=== PATIENT | male | born 1970 | race Caucasian/White ===

== ENCOUNTER 2017-03-16 13:15 | Emergency (ER) | payer OTHER ==
[~2017-03-16] VITALS: Wt 101.0 kg
[2017-03-16 15:42] LABS: ABNORMAL IP MESSAGE 1; BASOPHILS % 0.4 % (0.0-2.0); EOSINOPHILS # 0.3 10^3/ul (0.0-0.5); EOSINOPHILS % 5.6 % (0.0-7.0); HEMATOCRIT 28.2 % (42.0-52.0); HEMOGLOBIN 8.6 g/dl (14.0-18.0); LYMPHOCYTES # 0.6 10^3/ul (0.8-2.9); MEAN CORPUSCULAR HEMOGLOBIN 26.1 pg (29.0-33.0); MEAN CORPUSCULAR HGB CONC 30.5 g/dl (32.0-37.0); MEAN CORPUSCULAR VOLUME 85.7 fl (82.0-101.0); MONOCYTE # 0.5 10^3/ul (0.3-0.9); MONOCYTES % 10.8 % (0.0-11.0); NEUTROPHILS % 70.8 % (39.0-77.0); POSITIVE DIFF @See below; RED BLOOD COUNT 3.29 10^6/ul (4.70-6.10); RED CELL DISTRIBUTION WIDTH 26.5 % (11.5-14.5); WHITE BLOOD COUNT 4.8 10^3/ul (4.8-10.8)
[2017-03-16 15:59] LABS: INR 1.64; PROTIME 19.5 Sec (12.2-14.2); PT RATIO 1.5
[2017-03-16 16:00] LABS: PARTIAL THROMBOPLASTIN TIME 34.6 Sec (25.0-35.0)
[2017-03-16 16:04] LABS: ALBUMIN 2.9 g/dl (3.3-4.9); ALBUMIN/GLOBULIN RATIO 0.69; BILIRUBIN,INDIRECT 0.9 mg/dl (0-1.1); BILIRUBIN,TOTAL 0.9 mg/dl (0.2-1.3); CALCIUM 8.6 mg/dl (8.4-10.2); POTASSIUM 3.7 mmol/L (3.5-5.1); TOTAL PROTEIN 7.1 g/dl (6.1-8.1)
[2017-03-16 16:15] LABS: PLATELET COUNT 65 10^3/UL (140-415)
--- NOTE | 2017-03-16 17:43 | ERD ---
ER Documentation Chief Complaint Date/Time DATE: 03/16/17 TIME: 17:40 Chief Complaint HERE FOR PARACENTHESIS, HAS AP,SOB HPI This is a 47-year-old male who presents with abdominal distention asking for paracentesis. The patient has alcohol-related cirrhosis. His last pair was approximately 8-9 days ago. He describes abdominal fullness that is causing him to be mildly short of breath. He states this is similar to episodes in the past where he has required large-volume paracentesis. No fevers or chills no chest pain. ROS All systems reviewed and are negative except as per history of present illness. Medications Home Meds Active Scripts Cyclobenzaprine Hcl* (Cyclobenzaprine Hcl*) 10 Mg Tablet, 10 MG PO TID Y for cramping, #10 TAB Prov:ILENE WIN MD 03/16/17 Reported Medications [None] No Conflict Check 06/19/09 Allergies Allergies: Coded Allergies: acetaminophen (Verified Allergy, Unknown, itching, 03/16/17) hydrocodone (Verified Allergy, Unknown, Itching, 03/16/17) PMhx/Soc History of Surgery: Yes (GALBLADDER, LAPBAND) Anesthesia Reaction: No Hx Neurological Disorder: No Hx Respiratory Disorders: No Hx Cardiac Disorders: No Hx Psychiatric Problems: No Hx Miscellaneous Medical Probl: Yes (FATTY LIVER) Hx Alcohol Use: No Hx Substance Use: No Hx Tobacco Use: No Smoking Status: Never smoker FmHx Family History: No diabetes Physical Exam Vitals Vital Signs Date Time Temp Pulse Resp B/P Pulse Ox O2 Delivery O2 Flow Rate FiO2 03/16/17 18:24 100 18 120/75 100 03/16/17 13:16 98.1 129 20 136/76 99 Physical Exam General: Well developed, well nourished, no acute distress Head: Normocephalic, atraumatic Eyes: Pupils equally reactive, EOM intact ENT: Moist mucous membranes Neck: Supple, no lymphadenopathy Respiratory: Lungs clear bilaterally, no distress Cardiovascular: RRR, no murmurs, rubs, or gallops Abdominal: Soft, protuberant with fluid wave, no peritonitis : Deferred MSK: No edema, no unilateral swelling, 5/5 strength Neurologic: Alert and oriented, moving all extremities, normal speech, no focal weakness, no cerebellar signs Skin: No rash Psych: Normal mood Result Diagram: 03/16/17 1523 03/16/17 1523 Results 24 hrs Laboratory Tests Test 03/16/17 15:23 White Blood Count 4.810^3/ul Red Blood Count 3.2910^6/ul Hemoglobin 8.6g/dl Hematocrit 28.2% Mean Corpuscular Volume 85.7fl Mean Corpuscular Hemoglobin 26.1pg Mean Corpuscular Hemoglobin Concent 30.5g/dl Red Cell Distribution Width 26.5% Platelet Count 6510^3/UL Mean Platelet Volume fl Neutrophils % 70.8% Lymphocytes % 12.0% Monocytes % 10.8% Eosinophils % 5.6% Basophils % 0.4% Nucleated Red Blood Cells % 0.0/100WBC Neutrophils # (Manual) 3.410^3/ul Lymphocytes # 0.610^3/ul Monocytes # 0.510^3/ul Eosinophils # 0.310^3/ul Basophils # 0.010^3/ul Nucleated Red Blood Cells # 0.010^3/ul Prothrombin Time 19.5Sec Prothrombin Time Ratio 1.5 INR International Normalized Ratio 1.64 Activated Partial Thromboplast Time 34.6Sec Sodium Level 132mmol/L Potassium Level 3.7mmol/L Chloride Level 98mmol/L Carbon Dioxide Level 27mmol/L Anion Gap 11 Blood Urea Nitrogen 26mg/dl Creatinine 2.00mg/dl Glucose Level 78mg/dl Calcium Level 8.6mg/dl Total Bilirubin 0.9mg/dl Direct Bilirubin 0.00mg/dl Indirect Bilirubin 0.9mg/dl Aspartate Amino Transf (AST/SGOT) 62IU/L Alanine Aminotransferase (ALT/SGPT) 38IU/L Alkaline Phosphatase 131IU/L Total Protein 7.1g/dl Albumin 2.9g/dl Globulin 4.20g/dl Albumin/Globulin Ratio 0.69 Current Medications Medications (Trade) Dose Ordered Sig/Kenneth Route PRN Reason Start Time Stop Time Status Last Admin Dose Admin Lidocaine (Xylocaine 1% (Mpf)) 5 ml STK-MED ONCE .ROUTE 03/16/17 18:25 03/16/17 18:26 DC Cyclobenzaprine HCl (Flexeril) 10 mg ONCE ONCE PO 03/16/17 19:00 03/16/17 19:01 Procedures/MDM EKG, MONITORS, & DIAGNOSTIC IMAGING: Large volume therapeutic paracentesis performed by interventional radiology. LAB INTERPRETATION: No significant coagulopathy noted. MEDICAL DECISION MAKING: The patient presents with abdominal ascites likely secondary to cirrhosis. Patient does not exhibit any signs or symptoms concerning for complications of cirrhosis such as GI bleed, hepatic encephalopathy or spontaneous bacterial peritonitis. There is no indication currently for diagnostic paracentesis. The patient will benefit from large volume therapeutic paracentesis by interventional radiology. If the patient remains stable without evidence of hemodynamic compromise secondary to fluid shifts the patient can be safely discharged home with close primary care and hepatology follow-up. ER COURSE: The patient had successful large volume therapeutic paracentesis. The patient remained hemodynamically stable and otherwise well-appearing. The patient is safe for discharge home. I kept the patient and/or family informed of laboratory and diagnostic imaging results throughout the emergency room course. DISPOSITION PLAN: We discussed follow up with the patient's primary care doctor within 24 to 48 hours as needed. We also discussed return to the emergency room for worsening symptoms or worsening condition. Discharge Medications: None Departure Diagnosis: Primary Impression: Ascites Ascites type: due to alcoholic cirrhosis Qualified Code: K70.31 - Ascites due to alcoholic cirrhosis Additional Impressions: Anemia Anemia type: unspecified type Qualified Code: D64.9 - Anemia, unspecified type Thrombocytopenia History of cirrhosis Condition: Stable ILENE WIN MD Mar 16, 2017 17:43
[2017-03-16 18:24] VITALS: BP 120/75; PULSE 100; RESP 18
[2017-03-16] MEDS ORDERED: LIDOCAINE 1% (MPF) 5 ML VIAL ONE (18:25)
[2017-03-16] MEDS ORDERED: CYCL-319 PO (18:52)
--- NOTE | 2017-03-16 18:58 | RADRPT ---
PROCEDURE: Ultrasound guided paracentesis CLINICAL INDICATION: Ascites TECHNIQUE: The risks benefits and alternatives of the procedure were explained to the patient. In formed written consent was obtained. The patient understood the risks benefits and alternatives and wished to proceed with the procedure. A time out was performed. The overlying skin of the right lower quadrant of the abdomen was prepped and draped in the usual sterile fashion. Approximately 10 cc of lidocaine was injected locally for pain control. Utilizing ultrasound guidance, an 6-Maldivian p aracentesis catheter was placed into the peritoneal cavity without difficulty. Fluid was drained i nto vacuum bottles. After completion of draining fluid, the catheter was removed and direct pressur e was applied to the puncture site. A compression bandage was then placed at the puncture site. e patient tolerated the procedure well without complication. The fluid was not sent to the lab fo r further analysis. COMPARISON: None available FINDINGS: Surgeon: Gabriela TAYLOR. Preprocedural diagnosis: Ascites. Postprocedural diagnosis: Ascites. Samples removed: 8000 cc of clear yellow fluid was obtained. Complications: None. Estimated blood loss: 0 cc. Condition: Stable and unchanged. IMPRESSION: 1. Successful ultrasound-guided paracentesis. RPTAT: QQ .Sorin Ochoa MD, MD Date Time Electronically viewed and signed by .Sorin Ochoa MD, on 03/16/2017 18:57 .M/
[2017-03-16] MEDS ORDERED: CYCLOBENZAPRINE 10 MG TAB PO ONE (19:00)
== END 2017-03-16 19:34 | disposition home or self-care (01) ==
LOC: E/R 13:15
DX: K70.31 Alcoholic cirrhosis of liver with ascites (principal); D64.9 Anemia, unspecified; D69.6 Thrombocytopenia, unspecified
CPT/HCPCS: 36415; 80053; 85025; 85610; 85730; Z7502; Z7610

== ENCOUNTER 2017-03-20 10:53 | Emergency (ER) | payer OTHER ==
[~2017-03-20] VITALS: Ht 175.3 cm; Wt 90.9 kg
[~2017-03-20 10:53] MED LIST: CYCL-319 PO
[2017-03-20 10:55] VITALS: Ht 175.3 cm; Wt 90.9 kg
--- NOTE | 2017-03-20 16:49 | ERD ---
ER Documentation Chief Complaint Date/Time DATE: 03/20/17 TIME: 16:49 Chief Complaint ABDOMINAL DISTENTION - FOR PARACENTESIS HPI 47y/o male with recurrent ascites secondary to alcoholic liver cirrhosis presents to the ED c/o ongoing, clear, yellow drainage for paracentesis puncture wound performed 03/16/2017 and increasing distention needing paracentesis. No abdominal pain, N/V/D, shortness of breath, fevers bennett chills. ROS All systems reviewed and are negative except as per history of present illness. Medications Home Meds Active Scripts Cyclobenzaprine Hcl* (Cyclobenzaprine Hcl*) 10 Mg Tablet, 10 MG PO TID Y for cramping, #10 TAB Prov:ILENE WIN MD 03/16/17 Reported Medications [None] No Conflict Check 06/19/09 Allergies Allergies: Coded Allergies: acetaminophen (Verified Allergy, Unknown, itching, 03/16/17) hydrocodone (Verified Allergy, Unknown, Itching, 03/16/17) PMhx/Soc Reviewed in chart. As per HPI. History of Surgery: Yes (GALBLADDER, LAPBAND) Anesthesia Reaction: No Hx Neurological Disorder: No Hx Respiratory Disorders: No Hx Cardiac Disorders: No Hx Psychiatric Problems: No Hx Miscellaneous Medical Probl: Yes (FATTY LIVER, liver cirrhosis) Hx Alcohol Use: No Hx Substance Use: No Hx Tobacco Use: No Smoking Status: Former smoker FmHx Not relevant to presenting complaint. Physical Exam Vitals Vital Signs Date Time Temp Pulse Resp B/P Pulse Ox O2 Delivery O2 Flow Rate FiO2 03/20/17 19:33 98.7 91 16 138/74 99 Room Air 03/20/17 16:30 98.8 95 16 131/78 100 Room Air 03/20/17 10:55 98.8 125 19 128/77 100 Physical Exam Const: Alert, Chronically ill appearing. NAD. Head: Atraumatic Eyes: Anicteric. Normal Conjunctivae ENT: Normal External Ears, Nose and Mouth. Neck: Full range of motion. No JVD. Resp: Clear to auscultation bilaterally Cardio: Regular rate and rhythm, no murmurs Abd: Soft, distended. Normal bowel sounds. Puncture wound left mid abdominal wall. No drainage. No erythema or induration. Skin: No petechiae or rashes Back: No midline or flank tenderness Ext: No cyanosis. 1+ edema Neur: Awake and alert Psych: Normal Mood and Affect Result Diagram: 03/20/17 1637 03/20/17 1637 Results 24 hrs Laboratory Tests Test 03/20/17 16:37 White Blood Count 4.510^3/ul Red Blood Count 3.5210^6/ul Hemoglobin 9.5g/dl Hematocrit 30.2% Mean Corpuscular Volume 85.8fl Mean Corpuscular Hemoglobin 27.0pg Mean Corpuscular Hemoglobin Concent 31.5g/dl Red Cell Distribution Width 25.7% Platelet Count 5610^3/UL Mean Platelet Volume fl Neutrophils % % Segmented Neutrophils % (Manual) 68% Lymphocytes % % Lymphocytes % (Manual) 14% Monocytes % % Monocytes % (Manual) 10% Eosinophils % % Eosinophils % (Manual) 8% Basophils % % Nucleated Red Blood Cells % 0.0/100WBC Neutrophils # 10^3/ul Absolute Lymphocytes (Manual) 0.610^3/ul Lymphocytes # 0.610^3/ul Monocytes # 0.510^3/ul Absolute Monocytes (Manual) 0.410^3/ul Eosinophils # 0.410^3/ul Basophils # 10^3/ul Nucleated Red Blood Cells # 10^3/ul Platelet Estimate DECREASED Prothrombin Time 20.0Sec Prothrombin Time Ratio 1.6 INR International Normalized Ratio 1.69 Activated Partial Thromboplast Time 36.4Sec Sodium Level 134mmol/L Potassium Level 3.7mmol/L Chloride Level 104mmol/L Carbon Dioxide Level 23mmol/L Anion Gap 11 Blood Urea Nitrogen 21mg/dl Creatinine 1.18mg/dl Glucose Level 105mg/dl Calcium Level 8.6mg/dl Procedures/MDM DOCUMENTS REVIEWED: ED nurse prior ED, prior records, most recent paracentesis 4 days ago MEDICAL DECISION MAKINy/o male with recurrent ascites secondary to alcoholic liver cirrhosis presents to the ED c/o ongoing, clear, yellow drainage for paracentesis puncture wound performed 03/16/2017 and increasing distention needing paracentesis. Ultrasound reveals no significant recurrent ascites or indication for paracentesis. No further drainage from previous site. Surgical closure deferred. Stable for discharge with precautionary instructions and outpatient followup as counseled. Counseled patient regarding diagnostic workup, diagnosis and need for followup. Understands to return to ED if symptoms recur, worsen or any other concerns. Departure Diagnosis: Primary Impression: Ascites Ascites type: due to alcoholic cirrhosis Qualified Code: K70.31 - Ascites due to alcoholic cirrhosis Additional Impression: Alcoholic cirrhosis of liver Ascites presence: with ascites Qualified Code: K70.31 - Alcoholic cirrhosis of liver with ascites Condition: Stable YUE DE LOS SANTOS MD Mar 20, 2017 16:49
[2017-03-20 17:00] LABS: ABNORMAL IP MESSAGE 1; HEMATOCRIT 30.2 % (42.0-52.0); HEMOGLOBIN 9.5 g/dl (14.0-18.0); MEAN CORPUSCULAR HGB CONC 31.5 g/dl (32.0-37.0); MEAN CORPUSCULAR VOLUME 85.8 fl (82.0-101.0); PLATELET COUNT 56 10^3/UL (140-415); POSITIVE DIFF @See below; RED BLOOD COUNT 3.52 10^6/ul (4.70-6.10); RED CELL DISTRIBUTION WIDTH 25.7 % (11.5-14.5); WHITE BLOOD COUNT 4.5 10^3/ul (4.8-10.8)
[2017-03-20 17:14] LABS: INR 1.69; PT RATIO 1.6
[2017-03-20 17:15] LABS: PARTIAL THROMBOPLASTIN TIME 36.4 Sec (25.0-35.0)
[2017-03-20 17:21] LABS: CALCIUM 8.6 mg/dl (8.4-10.2); CREATININE 1.18 mg/dl (0.61-1.24); POTASSIUM 3.7 mmol/L (3.5-5.1)
[2017-03-20 17:58] LABS: EOSINOPHILS # 0.4 10^3/ul (0.0-0.5); EOSINOPHILS % (M) 8 % (0.0-7.0); LYMPHOCYTES # 0.6 10^3/ul (0.8-2.9); MONOCYTE # 0.5 10^3/ul (0.3-0.9); MONOCYTES % (M) 10 % (0-11)
[2017-03-20 17:59] LABS: PLATELET ESTIMATE DECREASED
[2017-03-20 19:33] VITALS: BP 138/74; PULSE 91; RESP 16; TEMP 98.7
--- NOTE | 2017-03-20 19:59 | RADRPT ---
PROCEDURE: Abdominal ultrasound limited. CLINICAL INDICATION: Ascites. TECHNIQUE: Multiple real-time longitudinal and transverse images of the abdomen were acquired util izing a curved array transducer. Images were reviewed on a high-resolution PACS workstation. COMPARISON: 03/16/2017. FINDINGS: There is a small volume of abdominal ascites. IMPRESSION: 1. Small volume of abdominal ascites, too little for safe paracentesis. RPTAT: HTAR .Elliot Blue MD, MD Date Time Electronically viewed and signed by .Elliot Blue MD, on 03/20/2017 19:59 .R/
== END 2017-03-20 19:35 | disposition home or self-care (01) ==
LOC: E/R 10:53
DX: K70.31 Alcoholic cirrhosis of liver with ascites (principal); Z87.891 Personal history of nicotine dependence
CPT/HCPCS: 76705; 80048; 85025; 85610; 85730; Z7502

== ENCOUNTER 2017-03-21 02:28 | Emergency (ER) | payer OTHER ==
[~2017-03-21] VITALS: Ht 175.3 cm; Wt 96.5 kg
[2017-03-21 02:31] VITALS: Ht 175.3 cm; Wt 96.5 kg
--- NOTE | 2017-03-21 03:00 | ERA ---
ER Documentation Chief Complaint Date/Time DATE: 03/21/17 TIME: 02:59 Chief Complaint c/o continued draining of post SHON guided paracentesis site done 4 days ago HPI The patient is a 47-year-old male, presenting with leakage from the puncture wound at the left lower quadrant abdominal paracentesis 4 days ago. He denies any pain, fever, abdominal pain, vomiting, dysuria, diarrhea Past medical history: Cirrhosis Past medical history cholecystectomy, lap band ROS All systems reviewed and are negative except as per history of present illness. Medications Home Meds Active Scripts Cyclobenzaprine Hcl* (Cyclobenzaprine Hcl*) 10 Mg Tablet, 10 MG PO TID Y for cramping, #10 TAB Prov:ILENE WIN MD 03/16/17 Reported Medications [None] No Conflict Check 06/19/09 Allergies Allergies: Coded Allergies: acetaminophen (Verified Allergy, Unknown, itching, 03/16/17) hydrocodone (Verified Allergy, Unknown, Itching, 03/16/17) PMhx/Soc History of Surgery: Yes (GALBLADDER, LAPBAND) Anesthesia Reaction: No Hx Neurological Disorder: No Hx Respiratory Disorders: No Hx Cardiac Disorders: No Hx Psychiatric Problems: No Hx Miscellaneous Medical Probl: Yes (FATTY LIVER, liver cirrhosis) Hx Alcohol Use: No Hx Substance Use: No Hx Tobacco Use: No Physical Exam Vitals Vital Signs Date Time Temp Pulse Resp B/P Pulse Ox O2 Delivery O2 Flow Rate FiO2 03/21/17 03:33 66 18 128/80 100 Room Air 03/21/17 02:31 98.5 112 18 138/80 100 Physical Exam Const: No acute distress. Head: Atraumatic. Eyes: Normal Conjunctiva. ENT: Normal External Ears, Nose and Mouth. Neck: Full range of motion. No meningismus. Resp: Clear to auscultation bilaterally. Cardio: Regular rate and rhythm. Abd: Soft, Small ascites, left lower quadrant puncture wound with minimal leakage, normal bowel sounds, non tender. Skin: No petechiae or rashes. Back: No midline or flank tenderness. Ext: No cyanosis, or edema. Neur: Awake and alert. No focal deficit Psych: Normal Mood and Affect. Procedures/MDM MEDICAL MAKING DECISION: The patient is a 47-year-old male, presenting with leakage from the incision of the prosthesis abdominal paracentesis 4 days ago. It was closed with Dermabond with good result Departure Diagnosis: Primary Impression: Postoperative complication Condition: Good Comments I discussed the findings with the patient. I advised the patient to follow-up with the primary physician in about 1-2 days, sooner if needed and return if any concern. The patient's blood pressure was elevated (>120/80) but appears stable without evidence of hypertension emergency or urgency. The patient was counseled about the risks of hypertension and urged to pursue outpatient monitoring and therapy within a week with their primary care physician. GINA ROBERTO MD Mar 21, 2017 03:00
[2017-03-21 03:33] VITALS: BP 128/80; PULSE 66; RESP 18
== END 2017-03-21 03:34 | disposition home or self-care (01) ==
LOC: E/R 02:28
DX: L76.82 Other postprocedural complications of skin and subcutaneous tissue (principal); Y82.8 Other medical devices associated with adverse incidents
CPT/HCPCS: 99282

== ENCOUNTER 2017-03-30 16:45 | Emergency (ER) | payer OTHER ==
[~2017-03-30] VITALS: Wt 104.0 kg
[2017-03-30] MEDS ORDERED: SOD CHLORIDE 0.9% 1,000 ML IV STA (18:04)
[2017-03-30] MEDS ORDERED: morphine 4 MG/ML VIAL IV STA (18:04)
[2017-03-30] MEDS ORDERED: ONDANSETRON 4 MG INJ IV STA ×2 (18:04→21:40)
[2017-03-30 18:36] LABS: ABNORMAL IP MESSAGE 1; BASOPHILS % 0.6 % (0.0-2.0); EOSINOPHILS # 0.2 10^3/ul (0.0-0.5); HEMATOCRIT 28.2 % (42.0-52.0); LYMPHOCYTES # 0.6 10^3/ul (0.8-2.9); LYMPHOCYTES % 10.5 % (15.0-51.0); MEAN CORPUSCULAR HEMOGLOBIN 27.1 pg (29.0-33.0); MEAN CORPUSCULAR HGB CONC 31.9 g/dl (32.0-37.0); MEAN CORPUSCULAR VOLUME 84.9 fl (82.0-101.0); MEAN PLATELET VOLUME 10.1 fl (7.4-10.4); MONOCYTE # 0.5 10^3/ul (0.3-0.9); MONOCYTES % 8.8 % (0.0-11.0); NEUTROPHIL # 4.1 10^3/ul (1.6-7.5); NEUTROPHILS % 75.7 % (39.0-77.0); PLATELET COUNT 69 10^3/UL (140-415); POSITIVE DIFF @See below; RED BLOOD COUNT 3.32 10^6/ul (4.70-6.10); RED CELL DISTRIBUTION WIDTH 23.1 % (11.5-14.5); WHITE BLOOD COUNT 5.5 10^3/ul (4.8-10.8)
[2017-03-30 18:51] LABS: INR 1.73; PROTIME 20.4 Sec (12.2-14.2); PT RATIO 1.6
[2017-03-30 18:52] LABS: PARTIAL THROMBOPLASTIN TIME 40.3 Sec (25.0-35.0)
[2017-03-30 18:54] LABS: ALANINE AMINOTRANSFERASE 45 IU/L (13-69); ALBUMIN/GLOBULIN RATIO 0.65; ALKALINE PHOSPHATASE 149 IU/L (42-121); AMYLASE 142 U/L (11-123); ANION GAP 11 (8-16); ASPARTATE AMINO TRANSFERASE 65 IU/L (15-46); BILIRUBIN,INDIRECT 1.1 mg/dl (0-1.1); BILIRUBIN,TOTAL 1.1 mg/dl (0.2-1.3); BLOOD UREA NITROGEN 21 mg/dl (7-20); CALCIUM 8.3 mg/dl (8.4-10.2); CARBON DIOXIDE 24 mmol/L (21-31); CHLORIDE 100 mmol/L (97-110); CREATININE 1.29 mg/dl (0.61-1.24); GLUCOSE 107 mg/dl (70-220); POTASSIUM 4.1 mmol/L (3.5-5.1); SODIUM 131 mmol/L (135-144); TOTAL PROTEIN 7.6 g/dl (6.1-8.1)
[2017-03-30] MEDS ORDERED: DIPHENHYDRAMINE 50 MG INJ IV ONE (19:00)
[2017-03-30 19:08] LABS: TROPONIN-I < 0.012 ng/ml (0.00-0.12)
[2017-03-30] MEDS ORDERED: LIDOCAINE 1% (MPF) 5 ML VIAL ONE (20:51)
[2017-03-30] MEDS ORDERED: DOCU-144 PO (20:58)
--- NOTE | 2017-03-30 20:58 | ERD ---
ER Documentation Chief Complaint Date/Time DATE: 03/30/17 TIME: 20:53 Chief Complaint abdominal distention, constipation - for paracentesis HPI This is a 47-year-old male with a known history of ascites secondary to alcoholic liver disease. The patient had a paracentesis 1 week ago and 9 L was removed. Indicates he has had significant abdominal distention since that time. He denies any abdominal pain. He does indicate that he has also been constipated for the past 7 days. He denies any hemoptysis hematemesis or melanotic stools. He has been experiencing flatulence. He has no shortness of breath. He does complain of mild dyspnea which he states is similar when he has his previous worsening ascites. He denies any abdominal pain. ROS All systems reviewed and are negative except as per history of present illness. Medications Home Meds Active Scripts Cyclobenzaprine Hcl* (Cyclobenzaprine Hcl*) 10 Mg Tablet, 10 MG PO TID Y for cramping, #10 TAB Prov:ILENE WIN MD 03/16/17 Reported Medications [None] No Conflict Check 06/19/09 Allergies Allergies: Coded Allergies: acetaminophen (Verified Allergy, Unknown, itching, 03/16/17) hydrocodone (Verified Allergy, Unknown, Itching, 03/16/17) PMhx/Soc History of Surgery: Yes (GALBLADDER, LAPBAND, REVERSED LAPBAND) Anesthesia Reaction: No Hx Neurological Disorder: No Hx Respiratory Disorders: No Hx Cardiac Disorders: No Hx Psychiatric Problems: No Hx Miscellaneous Medical Probl: Yes (FATTY LIVER, liver cirrhosis) Hx Alcohol Use: No (FORMER) Hx Substance Use: No Hx Tobacco Use: Yes Smoking Status: Former smoker Physical Exam Vitals Vital Signs Date Time Temp Pulse Resp B/P Pulse Ox O2 Delivery O2 Flow Rate FiO2 03/30/17 16:58 98.1 117 18 131/81 100 Physical Exam Constitutional:Well-developed. Well-nourished. HEENT:Normocephalic. Atraumatic.Pupils were equal round reactive to light. Moist mucous membranes.No tonsillar exudates. Neck: No nuchal rigidity. No lymphadenopathy. No posterior cervical spine tenderness or step-offs. Respiratory: Not using accessory muscles of respiration.Lungs were clear to auscultation bilaterally. No rhonchi. No rales. No wheezing. Cardiovascular: Regular rate regular rhythm.No murmurs. No rubs were appreciated.S1, S2 normal. Distal pulses are palpable 2+ bilaterally. GI: Abdomen was soft. Nontender. Distended with tense ascites and positive fluid thrill, no pulsatile abdominal masses or bruits. No rebound. No guarding. Bowel sounds were present and normal. Muscle skeletal: Full range of motion of both the upper and lower extremities bilaterally.Normal muscle tone.No assymetrical calf tenderness or swelling. Skin: No petechia, no purpura. No lesions on the palms or the soles of the feet. No maculopapular rash. NEURO: Patient was alert, awake, orientated x3.No facial droop. Gait observed and normal with no ataxia.Speech had regular rate and rhythm. No focal neurological deficits. Result Diagram: 03/30/17182903/30/171829 Results 24 hrs Laboratory Tests Test 03/30/17 18:30 White Blood Count 5.510^3/ul Red Blood Count 3.3210^6/ul Hemoglobin 9.0g/dl Hematocrit 28.2% Mean Corpuscular Volume 84.9fl Mean Corpuscular Hemoglobin 27.1pg Mean Corpuscular Hemoglobin Concent 31.9g/dl Red Cell Distribution Width 23.1% Platelet Count 6910^3/UL Mean Platelet Volume 10.1fl Neutrophils % 75.7% Lymphocytes % 10.5% Monocytes % 8.8% Eosinophils % 4.0% Basophils % 0.6% Nucleated Red Blood Cells % 0.0/100WBC Neutrophils # 4.110^3/ul Lymphocytes # 0.610^3/ul Monocytes # 0.510^3/ul Eosinophils # 0.210^3/ul Basophils # 0.010^3/ul Nucleated Red Blood Cells # 0.010^3/ul Prothrombin Time 20.4Sec Prothrombin Time Ratio 1.6 INR International Normalized Ratio 1.73 Activated Partial Thromboplast Time 40.3Sec Sodium Level 131mmol/L Potassium Level 4.1mmol/L Chloride Level 100mmol/L Carbon Dioxide Level 24mmol/L Anion Gap 11 Blood Urea Nitrogen 21mg/dl Creatinine 1.29mg/dl Glucose Level 107mg/dl Calcium Level 8.3mg/dl Total Bilirubin 1.1mg/dl Direct Bilirubin 0.00mg/dl Indirect Bilirubin 1.1mg/dl Aspartate Amino Transf (AST/SGOT) 65IU/L Alanine Aminotransferase (ALT/SGPT) 45IU/L Alkaline Phosphatase 149IU/L Troponin I < 0.012ng/ml Total Protein 7.6g/dl Albumin 3.0g/dl Globulin 4.60g/dl Albumin/Globulin Ratio 0.65 Amylase Level 142U/L Lipase 257U/L Current Medications Medications (Trade) Dose Ordered Sig/Kenneth Route PRN Reason Start Time Stop Time Status Last Admin Dose Admin Sodium Chloride (NS) 1,000 ml @ 1,000 mls/hr Q1H STAT IV 03/30/17 18:04 03/30/17 19:03 Cancel Morphine Sulfate (morphine) 4 mg ONCE STAT IV 03/30/17 18:04 03/30/17 18:05 DC 03/30/17 18:19 Ondansetron HCl (Zofran Inj) 4 mg ONCE STAT IV 03/30/17 18:04 03/30/17 18:05 DC 03/30/17 18:19 Diphenhydramine HCl (Benadryl) 50 mg ONCE ONCE IV 03/30/17 19:00 03/30/17 19:01 DC 03/30/17 19:27 Magnesium Hydroxide (Milk Of Mag) 30 ml ONCE ONCE PO 03/30/17 21:00 03/30/17 21:01 Lidocaine (Xylocaine 1% (Mpf)) 5 ml STK-MED ONCE .ROUTE 03/30/17 20:51 03/30/17 20:52 DC Procedures/MDM This is a very pleasant 47-year-old male that presented to the emergency department with ascites and no physical exam findings to suggest spontaneous bacterial peritonitis. The patient had ancillary laboratory work that showed a normal INR and no coagulopathy. The patient provided a written consent in order for me to perform an ultrasound-guided paracentesis. Procedure - Paracentesis by me: Patient consented, sterilely draped, full prep, gown, glove, mask, time out performed. Anesthesia: 1% lidocaine locally Location: Left Lower Quadrant Device: Needle aspiration with [id number] drainage Results: 8.5 liters clear fluid, without bleeding No complications. ED Ultrasound: Fluid pocket localized by me under concurrent ultrasound guidance. Real time image archived in the medical record confirming anatomy. The patient significant improvement of symptoms. He was given milk of magnesium for his constipation he did feel was worsened due to his ascites. The patient was discharged home in fair condition. They were instructed to return to the emergency department at any time if there was any worsening of their condition. The patient stated they would follow up with their PCP in the next 24-48 hours to initiate a suitable medication regimen under the care of their PCP as well as to allow their PCP to monitor any drug reactions. The patient was discharged home with prescriptions after they gave informed consent to the new medication. They were also fully informed by myself on the adverse effects and adverse drug interactions in order to provide adequate safeguards to prevent possible adverse reactions to medications. Critical Care: Time: 50 minutes Treatments/Evaluations: Close monitoring and treatment of unstable vital signs, cardiorespiratory, and neurologic status, while maintaining tight balance of fluid, respiratory, and cardiac interventions. Time does not include performing any of the above billable procedures. Departure Diagnosis: Primary Impression: Ascites Ascites type: due to alcoholic hepatitis Qualified Code: K70.11 - Ascites due to alcoholic hepatitis Additional Impression: Constipation Constipation type: unspecified constipation type Qualified Code: K59.00 - Constipation, unspecified constipation type Condition: Fair JULIET NUNES Mar 30, 2017 20:58
[2017-03-30] MEDS ORDERED: MAGNESIUM HYDROXIDE 30ML CUP PO ONE (21:00)
--- NOTE | 2017-03-30 21:03 | RADRPT ---
PROCEDURE: Ultrasound guidance for paracentesis. CLINICAL INDICATION: Ascites and shortness of breath. COMPARISON: Paracentesis dated 03/16/2017. TECHNIQUE: The procedure was performed by Dr. Preston. No radiologist was in attendance. The initial image dem onstrates a large amount of ascites in the left lower quadrant. The skin thickness is 3.1 cm. A post paracentesis image demonstrates only minimal free fluid remaining. The technologist's note indicate s 8.5 liters of fluid was aspirated by Dr. Preston. FINDINGS: The procedure was performed by Dr. Preston. No radiologist was in attendance. The initial image dem onstrates a large amount of ascites in the left lower quadrant. The skin thickness is 3.1 cm. A post paracentesis image demonstrates only minimal free fluid remaining. The technologist's note indicate s 8.5 liters of fluid was aspirated by Dr. Preston. IMPRESSION: 1. Ultrasound guidance for paracentesis performed by Dr. Preston. RPTAT: QQ .Alon Ramirez MD, Date Time Electronically viewed and signed by .Alon Ramirez MD, on 03/30/2017 21:03 .R/
[2017-03-30] MEDS ORDERED: HYDROmorphONE 1 MG/ML SYG IV STA (21:40)
[2017-03-30 22:08] VITALS: BP 121/84; PULSE 98; RESP 18; TEMP 98.7
[2017-03-30] MEDS ORDERED: HYDROCODONE/APAP (10/325) TAB PO ONE (22:30)
== END 2017-03-30 23:00 | disposition home or self-care (01) ==
LOC: E/R 16:45
DX: K70.11 Alcoholic hepatitis with ascites (principal); K59.00 Constipation, unspecified; R06.02 Shortness of breath; Z87.891 Personal history of nicotine dependence
CPT/HCPCS: 49083; 80053; 82150; 83690; 84484; 85025; 85610; 85730; 93005; J1200; J2270; J2405; Z7610; 96374; 96375; J1170; J7030

== ENCOUNTER 2017-03-31 22:48 | Emergency (ER) | payer OTHER ==
[~2017-03-31] VITALS: Ht 180.3 cm; Wt 98.0 kg
[~2017-03-31 22:48] MED LIST changes: +DOCU-144 PO
[2017-03-31 22:56] VITALS: Ht 180.3 cm; Wt 98.0 kg
[2017-04-01] MEDS ORDERED: ONDANSETRON 4 MG INJ IV STA (00:03)
[2017-04-01] MEDS ORDERED: morphine 4 MG/ML VIAL IV STA (00:03)
[2017-04-01 00:53] LABS: ABNORMAL IP MESSAGE 1; BASOPHILS % 0.5 % (0.0-2.0); EOSINOPHILS # 0.4 10^3/ul (0.0-0.5); EOSINOPHILS % 6.9 % (0.0-7.0); HEMATOCRIT 31.3 % (42.0-52.0); HEMOGLOBIN 9.9 g/dl (14.0-18.0); LYMPHOCYTES # 0.8 10^3/ul (0.8-2.9); LYMPHOCYTES % 12.9 % (15.0-51.0); MEAN CORPUSCULAR HEMOGLOBIN 26.5 pg (29.0-33.0); MEAN CORPUSCULAR HGB CONC 31.6 g/dl (32.0-37.0); MEAN CORPUSCULAR VOLUME 83.9 fl (82.0-101.0); MEAN PLATELET VOLUME 10.5 fl (7.4-10.4); MONOCYTE # 0.5 10^3/ul (0.3-0.9); MONOCYTES % 8.5 % (0.0-11.0); NEUTROPHIL # 4.5 10^3/ul (1.6-7.5); PLATELET COUNT 69 10^3/UL (140-415); POSITIVE DIFF @See below; RED BLOOD COUNT 3.73 10^6/ul (4.70-6.10); RED CELL DISTRIBUTION WIDTH 23.2 % (11.5-14.5); WHITE BLOOD COUNT 6.4 10^3/ul (4.8-10.8)
[2017-04-01] MEDS ORDERED: DIPHENHYDRAMINE 50 MG INJ ONE (00:55)
[2017-04-01] MEDS ORDERED: DIPHENHYDRAMINE 50 MG INJ IV ONE (01:00)
--- NOTE | 2017-04-01 01:04 | RADRPT ---
PROCEDURE: XR Chest. CLINICAL INDICATION: Possible sepsis. TECHNIQUE: Single frontal view of the chest. COMPARISON: 11/18/2012 FINDINGS: The cardiomediastinal silhouette is within normal limits. The lungs are clear. No signs of pleural f luid or pneumothorax are seen. The osseous structures and soft tissues are unremarkable. IMPRESSION: No evidence for active cardiopulmonary disease. RPTAT: [facility] Physician Lukas Date Time Electronically viewed and signed by Sonya Marks Physician on 04/01/2017 01:03 RS/
[2017-04-01 01:10] LABS: INR 1.76; PARTIAL THROMBOPLASTIN TIME 38.3 Sec (25.0-35.0); PROTIME 20.7 Sec (12.2-14.2); PT RATIO 1.6
[2017-04-01 01:20] LABS: ALBUMIN 2.7 g/dl (3.3-4.9); ALBUMIN/GLOBULIN RATIO 0.56; BILIRUBIN,INDIRECT 0.9 mg/dl (0-1.1); BILIRUBIN,TOTAL 0.9 mg/dl (0.2-1.3); CALCIUM 8.6 mg/dl (8.4-10.2); CREATININE 1.32 mg/dl (0.61-1.24); POTASSIUM 4.4 mmol/L (3.5-5.1); TOTAL PROTEIN 7.5 g/dl (6.1-8.1)
[2017-04-01] MEDS ORDERED: ZOLP5TAB7 PO (01:41)
[2017-04-01] MEDS ORDERED: SPIR50TA PO (01:41)
[2017-04-01] MEDS ORDERED: FURO40TA4 PO (01:41)
[2017-04-01 01:42] LABS: TROPONIN-I 0.013 ng/ml (0.00-0.12)
--- NOTE | 2017-04-01 02:12 | RADRPT ---
PROCEDURE: CT ABDOMEN/PELVIS WITHOUT CONTRAST CLINICAL INDICATION: 47-year-old male with abdominal pain. TECHNIQUE: The study was performed utilizing a [employer] VCT 64-slice CT scanner. Direct axia l sections were obtained through the abdomen and pelvis without the use of intravenous contrast mate rial. Sagittal and coronal reformations were obtained. One or more of the following dose reduction t echniques were utilized: automated exposure control, adjustment of the mA and/or kV according to pat ient's size or use of iterative reconstruction technique. The images [facility]. CTD/vol = 19.7 mGy; Total Exam DLP = 1417.1 mGy-cm. COMPARISON: CT abdomen/pelvis November 18, 2012. FINDINGS: Gynecomastia is present. Mild cardiomegaly is noted. There is minimal bibasilar subsegmental atelect asis. There is no evidence for significant pleural effusion. There is moderate ascites throughout th e abdomen and pelvis. The liver has a cirrhotic appearance but without focal areas of abnormal densi ty. There is recanalization of the umbilical vein. Mild gastric and splenic varices are seen. No int rahepatic nor extrahepatic biliary ductal dilatation is seen. Surgical clips are seen within the gal lbladder fossa from prior cholecystectomy. The pancreas is without areas of abnormal attenuation. T he spleen is enlarged measuring 18.2 cm in maximal length but without abnormal density. The adrenal glands are unremarkable. The kidneys are without abnormal density. No hydroureteronephrosis nor neph roureterolithiasis is evident. The urinary bladder contains urine. There is a small umbilical hernia with an opening of 15 x 12 mm containing fluid. There is mild retained stool identified throughout the colon without gross bowel obstruction. The appendix is visualized and is without abnormal thick ening or surrounding inflammatory reaction. The aortoiliac vessels are without aneurysmal dilatation . Degenerative changes are seen throughout the spine. There is diffuse infiltration of the soft tiss ues consistent with anasarca. IMPRESSION: 1. Cirrhotic liver with portal hypertension, recanalization of umbilical vein and varices. 2. Moderate ascites. 3. Splenomegaly. 4. Status post cholecystectomy. 5. Small umbilical hernia containing fluid. 6. Retained stool without obstruction. 7. No CT evidence for appendicitis. 8. Mild cardiomegaly. 9. Gynecomastia. 10. Anasarca. 11. Degenerative changes within the spine. .Kevin Fitch MD, Date Time Electronically viewed and signed by .Kevin Fitch MD, on 04/01/2017 02:12 .Nancy/
--- NOTE | 2017-04-01 03:54 | ERA ---
ER Documentation Chief Complaint Date/Time DATE: 04/01/17 TIME: 03:53 Chief Complaint paracentesis here yesterday,c/o abd pain and bilateral leg swelling & pain HPI Is a 47-year-old male had a paracentesis yesterday complains of abdominal pain and bilateral leg swelling and pain today. Pain is mild to moderate intensity is been going on for 6 hours with no exacerbating or alleviating factors located in the diffuse abdominal region with no localization and no relieving factors. Mild nausea but no vomiting. No fevers or chills. No other current complaints. ROS All systems reviewed and are negative except as per history of present illness. Medications Home Meds Active Scripts Docusate Sodium* (Colace*) 100 Mg Capsule, 100 MG PO TID, #30 CAP Prov:JULIET NUNES 03/30/17 Cyclobenzaprine Hcl* (Cyclobenzaprine Hcl*) 10 Mg Tablet, 10 MG PO TID Y for cramping, #10 TAB Prov:ILENE WIN MD 03/16/17 Reported Medications Spironolactone* (Aldactone*) 50 Mg Tablet, 50 MG PO DAILY, #30 TAB 04/01/17 Zolpidem Tartrate* (Zolpidem Tartrate*) 5 Mg Tablet, 5 MG PO QHS Y for INSOMNIA , #30 TAB 04/01/17 Furosemide* (Furosemide*) 40 Mg Tablet, 40 MG PO DAILY, TAB 04/01/17 Discontinued Reported Medications [None] No Conflict Check 06/19/09 Allergies Allergies: Coded Allergies: acetaminophen (Verified Allergy, Unknown, itching, 03/16/17) hydrocodone (Verified Allergy, Unknown, Itching, 03/16/17) PMhx/Soc History of Surgery: Yes (GALBLADDER, LAPBAND, REVERSED LAPBAND) Anesthesia Reaction: No Hx Neurological Disorder: No Hx Respiratory Disorders: No Hx Cardiac Disorders: No Hx Psychiatric Problems: No Hx Miscellaneous Medical Probl: Yes (FATTY LIVER, liver cirrhosis, paracentesis ) Hx Alcohol Use: Yes Hx Substance Use: No Hx Tobacco Use: Yes Smoking Status: Current every day smoker Physical Exam Vitals Vital Signs Date Time Temp Pulse Resp B/P Pulse Ox O2 Delivery O2 Flow Rate FiO2 03/31/17 22:56 97.8 118 20 119/67 100 Physical Exam Const: [] Head: Atraumatic Eyes: Normal Conjunctiva ENT: Normal External Ears, Nose and Mouth. Neck: Full range of motion..~ No meningismus. Resp: Clear to auscultation bilaterally Cardio: Regular rate and rhythm, no murmurs Abd: Soft, non tender, non distended. Normal bowel sounds Skin: No petechiae or rashes Back: No midline or flank tenderness Ext: No cyanosis, or edema Neur: Awake and alert Psych: Normal Mood and Affect Result Diagram: 04/01/172604/01/177 Results 24 hrs Laboratory Tests Test 04/01/17 00:27 White Blood Count 6.410^3/ul Red Blood Count 3.7310^6/ul Hemoglobin 9.9g/dl Hematocrit 31.3% Mean Corpuscular Volume 83.9fl Mean Corpuscular Hemoglobin 26.5pg Mean Corpuscular Hemoglobin Concent 31.6g/dl Red Cell Distribution Width 23.2% Platelet Count 6910^3/UL Mean Platelet Volume 10.5fl Neutrophils % 71.0% Lymphocytes % 12.9% Monocytes % 8.5% Eosinophils % 6.9% Basophils % 0.5% Nucleated Red Blood Cells % 0.0/100WBC Neutrophils # 4.510^3/ul Lymphocytes # 0.810^3/ul Monocytes # 0.510^3/ul Eosinophils # 0.410^3/ul Basophils # 0.010^3/ul Nucleated Red Blood Cells # 0.010^3/ul Prothrombin Time 20.7Sec Prothrombin Time Ratio 1.6 INR International Normalized Ratio 1.76 Activated Partial Thromboplast Time 38.3Sec Sodium Level 129mmol/L Potassium Level 4.4mmol/L Chloride Level 97mmol/L Carbon Dioxide Level 27mmol/L Anion Gap 9 Blood Urea Nitrogen 22mg/dl Creatinine 1.32mg/dl Glucose Level 98mg/dl Lactic Acid Level 1.8mmol/L Calcium Level 8.6mg/dl Total Bilirubin 0.9mg/dl Direct Bilirubin 0.00mg/dl Indirect Bilirubin 0.9mg/dl Aspartate Amino Transf (AST/SGOT) 67IU/L Alanine Aminotransferase (ALT/SGPT) 45IU/L Alkaline Phosphatase 157IU/L Troponin I 0.013ng/ml Total Protein 7.5g/dl Albumin 2.7g/dl Globulin 4.80g/dl Albumin/Globulin Ratio 0.56 Lipase 263U/L Current Medications Medications (Trade) Dose Ordered Sig/Kenneth Route PRN Reason Start Time Stop Time Status Last Admin Dose Admin Morphine Sulfate (morphine) 4 mg ONCE STAT IV 04/01/17 00:03 04/01/17 00:05 DC 04/01/17 01:01 Ondansetron HCl (Zofran Inj) 4 mg ONCE STAT IV 04/01/17 00:03 04/01/17 00:05 DC 04/01/17 01:01 Diphenhydramine HCl (Benadryl) 50 mg ONCE ONCE IV 04/01/17 01:00 04/01/17 01:09 DC 04/01/17 01:01 Diphenhydramine HCl (Benadryl) 50 mg STK-MED ONCE .ROUTE 04/01/17 00:55 04/01/17 00:56 DC Procedures/MDM EKG: Rate/Rhythm: [Normal Sinus Rhythm] QRS, ST, T-waves: [No changes consistent w/ acute ischemia] Impression: [No evidence of ischemia or arrhythmia] Chest X-ray 1V Interpreted by me: Soft Tissue: No acute abnormalities Bones: No acute abnormalities Mediastinum/Cardiac Silhouette/Lungs: [No acute abnormalities] Medical decision-making: This very pleasant 47-year-old male comes in with complaints of abdominal pain and is evidence of tense ascites again. Patient will be transferred to [facility]. Departure Diagnosis: Primary Impression: Ascites Qualified Code: R18.8 - Other ascites Condition: Serious [place] HANKINS Apr 01, 2017 03:54
[2017-04-01 04:20] VITALS: BP 144/59; PULSE 100; RESP 20
== END 2017-04-01 04:33 | disposition left against medical advice (07) ==
LOC: E/R 22:48
DX: R18.8 Other ascites (principal); R40.2252 Coma scale, best verbal response, oriented, at arrival to emergency department; R40.2142 Coma scale, eyes open, spontaneous, at arrival to emergency department; R40.2362 Coma scale, best motor response, obeys commands, at arrival to emergency department; F17.210 Nicotine dependence, cigarettes, uncomplicated
CPT/HCPCS: 36415; 71010; 74176; 80053; 83605; 83690; 84484; 85025; 85610; 85730; 87040; 93005; 96374; 96375; J1200; J2270; J2405; Z7502